=== PATIENT | male | born 1995 | race Caucasian/White ===

== ENCOUNTER 2016-08-02 23:58 | Emergency (ER) | payer MEDICAID ==
[2016-08-03 00:07] VITALS: BP 110/62
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
== END 2016-08-03 01:42 | disposition home or self-care (01) ==
LOC: ER 23:58
DX: S80.212A Abrasion, left knee, initial encounter (principal); S80.211A Abrasion, right knee, initial encounter; W01.0XXA Fall on same level from slipping, tripping and stumbling without subsequent striking against object, initial encounter; Y92.008 Other place in unspecified non-institutional (private) residence as the place of occurrence of the external cause

== ENCOUNTER 2016-09-27 12:51 | Emergency (ER) | payer MEDICAID ==
[2016-09-27] MEDS ORDERED: diphenhydrAMINE HCL 50 MG/ML VIAL IV ONE (13:29)
[2016-09-27] MEDS ORDERED: NORMAL SALINE 1,000 ML in NORMAL SALINE 1,000 ML IV ONE (13:29)
[2016-09-27] MEDS ORDERED: METOCLOPRAMIDE HCL 5 MG/ML VIAL IV ONE (13:29)
--- OUTSIDE RECORDS SUMMARY | 2016-09-27 13:30 | XMS REPORT | Continuity of Care Document ---
:1995 Author Organization [facility] [place] [address] Care Team Providers Name Role Phone Provider, None Per Patient Primary Care Provider Unavailable Source Comments This disclosure is being made pursuant to the [email or web address] program and maynot contain all information available regarding this patient.[facility] Active Allergies and Adverse Reactions Allergen Noted Date Severity Reactions Comments Latex 09/21/2016 Low Rash Pcn 09/21/2016 High Hives Current Medications Be aware that medications may not be up to date as of this document. Alwaysverify current medications with the patient. Prescription Sig. Disp. Refills Start Date End Date Status meloxicam (MOBIC) Take 1 tablet 30 tablet 2 09/21/2016 Active 15 MG tablet by mouth daily. traMADol (ULTRAM) Take 1 tablet 60 tablet 0 09/24/2016 Active 50 MG tablet (50 mg total) by mouth every 6 (six) hours as needed for Pain. traMADol (ULTRAM) Take 1 tablet 20 tablet 0 09/21/2016 09/24/2016 Discontinued 50 MG tablet (50 mg total) by mouth every 6 (six) hours as needed for Pain. Active Problems No known active problems Most Recent Encounters Date Type Specialty Providers Description 09/24/2016 Refill Family Medicine Delio Morton LPN Acute pain of right knee (Primary Dx) 09/21/2016 Office Visit Family Medicine Edy Fragoso DO Acute pain of right knee (Primary Dx) Social History Tobacco Use Types Packs/Day Years Used Date Former Smoker Quit: 06/23/2015 Alcohol Use Drinks/Week oz/Week Comments No Last Filed Vital Signs Vital Sign Reading Time Taken Blood Pressure 110/72 09/21/2016 9:45 AM CDT Pulse 59 09/21/2016 9:45 AM CDT Temperature 36.1 C (96.9 F) 09/21/2016 9:45 AM CDT Respiratory Rate 16 09/21/2016 9:45 AM CDT Height 1.803 m (5' 11") 09/21/2016 9:45 AM CDT Weight 107.049 kg (236 lb) 09/21/2016 9:45 AM CDT Body Mass Index 32.93 09/21/2016 9:45 AM CDT Oxygen Saturation 98% 09/21/2016 9:45 AM CDT Plan of Care Date Type Specialty Providers Description 10/22/2016 Appointment Family Medicine Edy Fragoso V, [address] [place] [phone] (Fax) Health Maintenance Due Date Last Done Comments HPV Vaccine (9-26YO) (1 of 3 - Male 3 Dose Series) 01/04/2007 Meningococcal Vaccine (1 of 1) 2012 Tetanus/Pertussis (1 - Tdap) 01/04/2015 Influenza Immunization (#1) 2016 Results from Last 3 Months Not on file
[2016-09-27 13:41] LABS: Hematocrit 48.3 % (42.0-52.0); Hemoglobin 16.2 gm/dL (13.5-18.0); Mean Cell Volume 87.5 fl (78-100); Mean Corpuscular Hemoglobin 29.3 pg (27-31); Mean Corpuscular Hgb Conc 33.5 g/dl (32-36); Mean Platelet Volume 8.7 fl (6.0-9.5); Neutrophil # 17.4 K/mm3 (1.3-6.0); Neutrophil % 90.5 % (42-75.0); Platelet Count 316 K/mm3 (150-450); Red Blood Count 5.52 M/mm3 (4.7-6.0); White Blood Count 19.2 K/mm3 (4.0-10.5)
[2016-09-27 13:53] LABS: Albumin * 4.6 gm/dl (3.4-5.0); Anion Gap 14.3 mmol/L (6.8-13.8); BUN/Creatinine Ratio 21.3 (9.0-21.6); Bilirubin, Total 0.9 mg/dL (0.0-1.1); Ca. Corrected For Albumin 8.7 mg/dL (8.4-10.2); Calcium * 9.5 mg/dL (7.9-10.9); Carbon Dioxide 25.9 mmol/L (24-32.6); Magnesium 1.9 mg/dL (1.2-2.8); Potassium 4.2 mmol/L (3.4-4.6)
[2016-09-27] MEDS ORDERED: METOCLOPRAMIDE HCL 5 MG/ML VIAL ONE (13:56)
[2016-09-27] MEDS ORDERED: diphenhydrAMINE HCL 50 MG/ML VIAL ONE (13:56)
[2016-09-27 14:08] VITALS: BP 142/79
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
== END 2016-09-27 15:07 | disposition home or self-care (01) ==
LOC: ER 12:51
DX: G43.909 Migraine, unspecified, not intractable, without status migrainosus (principal)

== ENCOUNTER 2016-10-03 21:03 | Observation (INO) | payer MEDICAID ==
[2016-10-03] MEDS ORDERED: KETOROLAC TROMETHAMINE 30 MG/ML VIAL ONE ×2 (21:31→21:54)
[2016-10-03] MEDS ORDERED: KETOROLAC TROMETHAMINE 30 MG/ML VIAL IV ONE (21:33)
--- OUTSIDE RECORDS SUMMARY | 2016-10-03 21:38 | XMS REPORT | Continuity of Care Document ---
:1995 Author Organization [facility] [place] [address] Care Team Providers Name Role Phone Provider, None Per Patient Primary Care Provider Unavailable Source Comments This disclosure is being made pursuant to the [employer] program and contain all information available regarding this patient.[facility] Active Allergies and Adverse Reactions Allergen Noted [...] 10/22/2016 Appointment Family Medicine Edy Fragoso V, [address] [place] [phone] (Fax) Health Maintenance Due Date Last Done Comments HPV Vaccine (9-26YO) (1 of 3 - Male 3 Dose Series) 01/04/2007 Meningococcal Vaccine (1 of 1) 2012 Tetanus/Pertussis (1 - Tdap) 01/04/2015 Influenza Immunization (#1) 2016 Results from Last 3 Months Not on file
[2016-10-03 21:40] LABS: Albumin * 4.4 gm/dl (3.4-5.0); Anion Gap 15.1 mmol/L (6.8-13.8); BUN/Creatinine Ratio 12.4 (9.0-21.6); Bilirubin, Total 0.6 mg/dL (0.0-1.1); CRP 0.4 mg/dL (0.0-0.9); Ca. Corrected For Albumin 8.6 mg/dL (8.4-10.2); Calcium * 9.2 mg/dL (7.9-10.9); Carbon Dioxide 25.4 mmol/L (24-32.6); Potassium 3.5 mmol/L (3.4-4.6); Total Protein 8.7 gm/dL (6.2-8.2)
[2016-10-03 22:02] LABS: Hematocrit 48.2 % (42.0-52.0); Hemoglobin 16.5 gm/dL (13.5-18.0); Mean Cell Volume 85.2 fl (78-100); Mean Corpuscular Hemoglobin 29.2 pg (27-31); Mean Corpuscular Hgb Conc 34.2 g/dl (32-36); Mean Platelet Volume 8.8 fl (6.0-9.5); Neutrophil # 11.1 K/mm3 (1.3-6.0); Neutrophil % 80.2 % (42-75.0); Platelet Count 392 K/mm3 (150-450); Red Blood Count 5.66 M/mm3 (4.7-6.0); Red Cell Distribution Width 12.7 % (11.5-14.0); White Blood Count 13.9 K/mm3 (4.0-10.5)
[2016-10-03] MEDS ORDERED: HYDROmorphone HCL 1 MG/ML DISP.SYRIN IV ONE ×2 (22:11→22:36)
[2016-10-03] MEDS ORDERED: ONDANSETRON HCL/PF 2 MG/ML VIAL IV ONE (22:11)
[2016-10-03] MEDS ORDERED: HYDROmorphone HCL 1 MG/ML DISP.SYRIN ONE ×2 (22:13→22:33)
[2016-10-03] MEDS ORDERED: ONDANSETRON HCL/PF 2 MG/ML VIAL ONE (22:14)
[2016-10-03] MEDS ORDERED: DIATRIZOATE MEGLU/DIATRIZO SOD 30 ML BTL ONE (22:47)
[2016-10-03] MEDS ORDERED: DIATRIZOATE MEGLU/DIATRIZO SOD 30 ML BTL PO ONE (23:59)
[2016-10-04] MEDS ORDERED: NORMAL SALINE 1,000 ML IV ONE (00:47)
--- NOTE | 2016-10-04 00:48 | ERNOTE ---
<Bone,Tyron - Last Filed: 10/04/16 00:45> Medical Problem HPI - General Chief Complaint: General Assessment Time Seen by Provider: 10/03/16 21:09 - Immun/Allergies/Home Medications Immunizations: IMMUNIZATION HX Immunizations Up to Date Yes History of Influenza Vaccine No Hx Pneumococcal Vaccination No Allergies/Adverse Reactions: Allergies latex Allergy (Verified 09/27/16 13:15) Penicillins Allergy (Verified 09/27/16 13:15) IV dye Allergy (Uncoded 09/27/16 13:15) Home Medications: HOME MEDICATIONS Butalb/Acetaminophen/Caffeine [Fioricet] 1 tab PO TID PRN #20 tablet 09/27/16 [ Last Taken Unknown] Citalopram Hydrobromide [Citalopram HBr] 20 mg PO DAILY 09/27/16 [Last Taken Unknown] Ondansetron [Zofran Odt] 4 mg PO Q6H PRN #20 tab 09/27/16 [Last Taken Unknown] - History of Present History Narrative: Pt comes in for right sided headache and right lower quadrant abd pain and nausea and vomiting for 12 hours. He does have migraine headaches but his abd pain is worse. His medications at home have not helped. he is unable to keep any fluids down today due to vomiting Review of Systems - Review of Systems Constitutional: Present: fatigue EYE: Present: no symptoms reported ENT: Present: no symptoms reported Respiratory: Present: no symptoms reported Cardiology: Present: no symptoms reported Gastrointestinal/Abdominal: Present: See HPI Neurological: Present: See HPI, headache - Patient's Past Medical History Patient History - Medical: No pertinent hx, Migraines Patient History - Cardiac/Respiratory: Asthma Patient History - Cancer: No Hx of Cancer Patient History - Surgical Procedures: Other, Hernia Repair Patient History - Other: None - Family History Mother Family History - Medical: Diabetes Type 2, Migraines - Social History Living Situations: home Abuse History: No History of abuse Psych History: Hx of Anxiety Smoking Status: Never smoker Alcohol Use: none Drug Use: none - Immunizations Immunizations Up to Date: Yes Hx Pneumococcal Vaccination: No History of Influenza Vaccine: No Physical Exam - Physical Exam General Appearance: Present: wd/wn, alert, no apparent distress Eye Exam: Normal inspection: bilateral, PERRL: bilateral, EOMI: bilateral Ears, Nose, Throat: Present: normal ENT inspection, normal pharynx, other - There is tenderness of right maxillary area and frontal area on exam Respiratory: Present: no respiratory distress, normal breath sounds, no accessory muscle use, chest nontender, lungs clear Cardiovascular/Chest: Present: regular rate, rhythm, no murmur, normal peripheral pulses Gastrointestinal/Abdominal: Present: normal bowel sounds, soft, other - pt does have right lower quadrant abd pain when I examine him Extremity Exam: Present: normal inspection, normal range of motion Neurological Exam: Present: alert, oriented, normal mood/affect ED Progress - Results and Orders Patient's Lab Results:: I have reviewed the patient's lab results. - Vital Signs Patient's Vital Signs:: I have reviewed the patient's vital signs. Vital Signs: Vital Signs 10/03/16 10/03/16 10/03/16 21:09 22:20 23:34 Temperature 36.7 C Pulse Rate 96 93 90 Respiratory 17 14 18 Rate Blood Pressure 149/94 131/76 123/72 O2 Sat by Pulse 98 95 96 Oximetry - Progress/Reassessment Chief Complaint: General Assessment Departure - Departure Clinical Impression: Status migrainosus Disposition: [facility] Condition: Stable <Beverly Payan - Last Filed: 10/04/16 01:04> Medical Problem HPI - Immun/Allergies/Home Medications Immunizations: IMMUNIZATION HX Immunizations Up to Date Yes History of Influenza Vaccine No Hx Pneumococcal Vaccination No - Family History Mother Family History - Medical: Diabetes Type 2, Migraines ED Progress - Vital Signs Vital Signs: Vital Signs 10/03/16 10/03/16 10/03/16 21:09 22:20 23:34 Temperature 36.7 C Pulse Rate 96 93 90 Respiratory 17 14 18 Rate Blood Pressure 149/94 131/76 123/72 O2 Sat by Pulse 98 95 96 Oximetry 10/04/16 00:53 Temperature 37.0 C Pulse Rate 75 Respiratory 16 Rate Blood Pressure 128/69 O2 Sat by Pulse 97 Oximetry Plan - Plan Plan: pt's work up for appy is negative but pt states his headache is not better. Will admit for pain control.
--- OUTSIDE RECORDS SUMMARY | 2016-10-04 01:51 | XMS REPORT | Continuity of Care Document ---
:1995 Author Organization [facility] [place] [address] Care Team Providers Name Role Phone Provider, None Per Patient Primary Care Provider Unavailable Source Comments This disclosure is being made pursuant to the [employer] program and contain all information available regarding this patient.[facility] [facility] Active Allergies and Adverse Reactions Allergen Noted [...] 10/22/2016 Appointment Family Medicine Edy Fragoso V, [address] [place] [phone] (Fax) Health Maintenance Due Date Last Done Comments HPV Vaccine (9-26YO) (1 of 3 - Male 3 Dose Series) 01/04/2007 Meningococcal Vaccine (1 of 1) 2012 Tetanus/Pertussis (1 - Tdap) 01/04/2015 Influenza Immunization (#1) 2016 Results from Last 3 Months Not on file
[2016-10-04] MEDS ORDERED: NORMAL SALINE 1,000 ML IV PRN (02:23)
[2016-10-04] MEDS ORDERED: KETOROLAC TROMETHAMINE 30 MG/ML VIAL IV PRN (02:23)
[2016-10-04] MEDS ORDERED: ONDANSETRON HCL/PF 2 MG/ML VIAL IV PRN (02:25)
--- NOTE | 2016-10-04 02:55 | HP ---
Chief Complaint - Chief Complaint Date of Service: 10/04/16 Time of Service: 02:06 Chief Complaint: "Abdominal Pain, n/v, diarrhea.". Source of HPI- Pt; unreliable, Pt's father Clark, ER provider report. History of Present Illness: Iggy Henriquez is a 21-yr-old WM pt with no pertinent medical history besides Migraines. Pt does not appear to be a precise historian and his father Clark, provided most of the information. Pt can answer some questions with eyes closed or awakens and drifts back into sleep. Clark states that pt has not been feeling well for the last one week. While family went out for dinner last night , he chose to stay home. Pt later called parents that he was having severe abdominal pain on "his sides and he was screaming." Since they were 20 minutes away from home, the called the EMS for him and he was brought to the [facility] ED. Father states pt's appetite has been very poor for the last 7 days. He has been drinking Gatorade and Mirtha Mist but sometimes, he cannot keep the liquids down. Pt reports that he has had up to 6 lose/liquid stools a day for the 7 days and the diarrhea is accompanied with abdominal pain. He denies fever & chills. Also no blood in stools. He has had no recent antibiotic use. Pt states that he was recently started on a new medication for migraines and thought that it maybe causing diarrhea. He called Dr. Caldwell( Neurology), but he was told that the medication could not cause diarrhea. During evaluation at the ED, the CT scan of the abdomen obtained did not have any obvious acute findings and was non-specific. The BMP was normal. However, the WBC was elevated at 13.9 with a LT shift. He will be admitted under observation status due to Abdominal Pain and for Migraine pain control. - Patient's Past Medical History Patient History - Medical: No pertinent hx, Migraines Patient History - Cardiac/Respiratory: Asthma Patient History - Cancer: No Hx of Cancer Patient History - Surgical Procedures: Other, Hernia Repair Patient History - Other: None - Family History Mother Family History - Medical: Diabetes Type 2, Migraines - Social History Living Situations: home Abuse History: No History of abuse Psych History: Hx of Anxiety Smoking Status: Never smoker Alcohol Use: none Drug Use: none - Immunizations Immunizations Up to Date: Yes Hx Pneumococcal Vaccination: No History of Influenza Vaccine: No Review Of Systems (GEN) - Review of Systems Generalized/Overall Review: Present: Weight loss. Absent: Weakness, Chills, Fever EENTM: Present: Blurred Vision - RT eye. Absent: Eye Pain, Double Vision, Ear Pain Respiratory: Absent: Cough, Shortness of Breath Cardiac: Absent: Chest Pain, Edema, Palpitations Abdominal: Present: Nausea, Vomiting, Abdominal Pain, Diarrhea. Absent: Constipation Genitourinary: Absent: Burning, Frequency, Hematuria Musculoskeletal: Absent: Joint Pain, Back Pain, Neck Pain Neurological: Present: Headache. Absent: Anxiety, Depressed, Numbness, Weakness Skin: Absent: Dryness, Lesions, Bruising Endocrine: Present: No Symptoms Reported Misc: All systems neg except as marked Allergies/Adverse Reactions: Allergies Allergy/AdvReac Type Severity Reaction Status Date / Time latex Allergy Verified 09/27/16 13:15 Penicillins Allergy Verified 09/27/16 13:15 IV dye Allergy Uncoded 09/27/16 13:15 Home Medications: HOME MEDICATIONS Citalopram Hydrobromide [Citalopram HBr] 20 mg PO DAILY 09/27/16 [Last Taken 07/17] Amitriptyline HCl [Elavil] 25 mg PO HS 10/04/16 [Last Taken 09/29/16] Promethazine HCl [Phenergan] 25 mg PO ONCE PRN 10/04/16 [Last Taken 09/29/16] SUMAtriptan SUCCINATE [Imitrex] 50 mg PO ONCE PRN 10/04/16 [Last Taken 09/29/16] Exam - Exam Vital Signs: Vital Signs - Last Taken Temp 37.0 C 10/04/16 00:53 Pulse 75 10/04/16 00:53 Resp 16 10/04/16 00:53 BP 128/69 10/04/16 00:53 Pulse Ox 97 10/04/16 00:53 Constitutional: Present: Alert, Oriented x3, No distress, Other - Drowsy ENT Exam: Present: normal ENT inspection, hearing grossly normal, dry mucous membranes. Absent: nasal congestion, nasal drainage Eye Exam: bilateral eye: normal inspection, PERRL Neck: Present: full range of motion, supple, normal inspection Back Exam: Present: normal inspection, no CVA tenderness Breasts: Present: Exam deferred Respiratory: Present: lungs clear, no accessory muscle use, No wheezing Cardiovascular/Chest: Present: normal peripheral pulses, regular rate, rhythm, no chest tenderness, no edema, no murmur Abdomen: Present: Normal bowel sounds, soft, tender - RLQ /Rectal: Present: Exam deferred Extremity: Present: normal range of motion, non-tender, normal inspection, no pedal edema Skin Exam: Present: warm/dry, no cyanosis Lymphatic: Present: no adenopathy Neurologic: Present: no motor/sensory deficits, oriented x 3. Absent: abnormal gait, aphasia, dizzy/light-headedness Appearance: Present: appropriate appearance, impaired insight Eye contact: Present: cooperative, normal speech Thoughts: Present: normal thought pattern, no apparent hallucination Diagnostic Studies: Laboratory Results WBC 13.9 K/mm3 (4.0-10.5) H 10/03/16 21:20 RBC 5.66 M/mm3 (4.7-6.0) 10/03/16 21:20 Hgb 16.5 gm/dL (13.5-18.0) 10/03/16 21:20 Hct 48.2 % (42.0-52.0) 10/03/16 21:20 MCV 85.2 fl (78-100) 10/03/16 21:20 MCH 29.2 pg (27-31) 10/03/16 21:20 MCHC 34.2 g/dl (32-36) 10/03/16 21:20 RDW 12.7 % (11.5-14.0) 10/03/16 21:20 Plt Count 392 K/mm3 (150-450) 10/03/16 21:20 MPV 8.8 fl (6.0-9.5) 10/03/16 21:20 Immature Gran % (Auto) 0.20 % (0.001-0.429) 10/03/16 21:20 Immature Gran # (Auto) 0.03 K/mm3 (0.000-0.0310) 10/03/16 21:20 Neutrophils % 80.2 % (42-75.0) H 10/03/16 21:20 Lymphocytes % 9.4 % (20-51) L 10/03/16 21:20 Monocytes % 9.6 % (0.0-9) H 10/03/16 21:20 Eosinophils % 0.5 % (0.0-3.0) 10/03/16 21:20 Basophils % 0.1 % (0.0-1.0) 10/03/16 21:20 Nucleated RBC % 0.0 k/mm3 (0-1) 10/03/16 21:20 Neutrophils # 11.1 K/mm3 (1.3-6.0) H 10/03/16 21:20 Lymphocytes # 1.3 k/mm3 (1.5-3.5) L 10/03/16 21:20 Monocytes # 1.3 k/mm3 (0.0-1.0) H 10/03/16 21:20 Eosinophils # 0.1 k/mm3 (0.0-0.7) 10/03/16 21:20 Absolute Basophils 0.0 k/mm3 (0.0-0.1) 10/03/16 21:20 ESR 13 mm/hr (0-10) H 10/03/16 21:20 Sodium 140 mmol/L (132-142) 10/03/16 21:20 Plasma Sodium 140 mmol/L (130-142) 10/03/16 21:20 Potassium 3.5 mmol/L (3.4-4.6) 10/03/16 21:20 Chloride 103 mmol/L (97-106) 10/03/16 21:20 Carbon Dioxide 25.4 mmol/L (24-32.6) 10/03/16 21:20 Anion Gap 15.1 mmol/L (6.8-13.8) H 10/03/16 21:20 BUN 11 mg/dL (6-23) 10/03/16 21:20 Creatinine 0.89 mg/dL (0.4-1.4) 10/03/16 21:20 Est GFR (Non-Af Amer) 116 mL/min (60-130) 10/03/16 21:20 BUN/Creatinine Ratio 12.4 (9.0-21.6) 10/03/16 21:20 Random Glucose 113 mg/dL (70-110) H 10/03/16 21:20 Calcium 9.2 mg/dL (7.9-10.9) 10/03/16 21:20 Calcium Adj for Albumin 8.6 mg/dL (8.4-10.2) 10/03/16 21:20 Total Bilirubin 0.6 mg/dL (0.0-1.1) 10/03/16 21:20 AST 26 U/L (0-48) 10/03/16 21:20 ALT 26 U/L (19-67) 10/03/16 21:20 Alkaline Phosphatase 89 U/L (50-170) 10/03/16 21:20 C-Reactive Prot, Quant 0.4 mg/dL (0.0-0.9) 10/03/16 21:20 Total Protein 8.7 gm/dL (6.2-8.2) H 10/03/16 21:20 Albumin 4.4 gm/dl (3.4-5.0) 10/03/16 21:20 Assessment/Plan - Assessment/Plan (1) Abdominal pain Assessment: It is difficult to rely on the pt's report of symptoms in part due to his drowsiness as prior to the exam, he had received IV narcotics for Migraine and Abdominal pain. On physical exam, the Abdomen is soft, non-distended, has no guarding and no abdominal rigidity. He has RLQ tenderness on palpation but the Abd CT was negative for Appendicitis. He reports diarrhea, N/V that has gone on for 7 days, however there is no sign of fluid loss noted with his V.S or no Metabolic/Electrolytes changes. WBC is elevated at 13,900 but it's down from 19,200 on 09/27. Overall, he does not appear acutely ill. Since his WBC went down without any treatment, watchful waiting would be appropriate and pt will be encouraged to push fluids and educated on signs of dehydration. Will collect stool samples and check for fecal leukocyte and blood to see if diarrhea is inflammatory first then additional testing if the are both positive. Since pt also reported prominent vomiting, could suspect that is related to viral Enteritis-in which treatment is symptomatic with fluid and electrolyte replacement . Will admit for observation and provide supportive cares with IVF hydration, pain medication, and trend CBC in am. Problem: Acute (2) Diarrhea Assessment: Plan as above- Check fecal leukocyte and occult blood. Problem: Acute (3) Migraines Assessment: Head CT at the ED was non- Acute. Has had Migraines since 12 yrs. Is followed by Dr. Caldwell ( Neurology). Will provide IV toradol during hospitalization and will need to resume his home medication. Problem: Chronic
[2016-10-04 05:56] LABS: Hematocrit 43.7 % (42.0-52.0); Hemoglobin 14.6 gm/dL (13.5-18.0); Mean Cell Volume 86.7 fl (78-100); Mean Corpuscular Hgb Conc 33.4 g/dl (32-36); Mean Platelet Volume 8.5 fl (6.0-9.5); Neutrophil # 7.6 K/mm3 (1.3-6.0); Neutrophil % 72.1 % (42-75.0); Platelet Count 325 K/mm3 (150-450); Red Blood Count 5.04 M/mm3 (4.7-6.0); Red Cell Distribution Width 12.9 % (11.5-14.0); White Blood Count 10.5 K/mm3 (4.0-10.5)
[2016-10-04 06:08] LABS: Anion Gap 11.8 mmol/L (6.8-13.8); BUN/Creatinine Ratio 15.4 (9.0-21.6); Blood Urea Nitrogen 14 mg/dL (6-23); Calcium * 8.6 mg/dL (7.9-10.9); Carbon Dioxide 28.8 mmol/L (24-32.6); Chloride 106 mmol/L (97-106); Glucose * 97 mg/dL (70-110); Potassium 3.6 mmol/L (3.4-4.6); Sodium 143 mmol/L (132-142)
[2016-10-04 06:49] LABS: Lymphocyte 5 % (20-51)
[2016-10-04 06:50] LABS: Bacteria Many; White Blood Count Many
[2016-10-04 06:51] LABS: Yeast None Seen
[2016-10-04 06:54] LABS: Eosinophil 45 % (0-3); Neutrophil 50 % (42-75)
--- NOTE | 2016-10-04 10:45 | DS ---
(1) Abdominal pain Problem: Acute (2) Diarrhea Problem: Acute (3) Status migrainosus Problem: Acute Description of Stay: Description of stay: Iggy is a 21 year old male with a meterman history of migraines that presented to the ER with severe headache and n/v/d x7 days (improving). CT of the head and abdomen were non acute. patient was started on iv fluids. c diff negative. pt was released later that afternoon once stabilized and his headache improved. instructed to follow up with pcp in 1 week. Procedures Performed: none Discharge Disposition: Home self care Disposition: Home self-care Condition: Undetermined Discharge Activity: Activity as tolerated Discharge Diet: General/regular food Problem Oriented Discharge Instructions to Patient/Family: Viral Gastroenteritis, Adult, [id number], Rehydration, Adult Additional Patient Instructions (free text): push fluids - such as water. follow up with primary care physician in 1 week. Complete Home Medications List: Complete Home Medication List: Citalopram Hydrobromide [Citalopram HBr] 20 mg PO DAILY 09/27/16 Amitriptyline HCl [Elavil] 25 mg PO HS 10/04/16 Promethazine HCl [Phenergan (Promethazine)] 25 mg PO ONCE PRN 10/04/16 SUMAtriptan SUCCINATE [Imitrex] 50 mg PO ONCE PRN 10/04/16
[2016-10-04 11:32] VITALS: BP 90/41
== END 2016-10-04 11:30 | disposition home or self-care (01) ==
LOC: ER 21:03 → MS 10-04 01:45
PROVIDERS: ADMIT Nurse Practitioner; ATTEND Internal Medicine
DX: G43.901 Migraine, unspecified, not intractable, with status migrainosus (principal); R10.9 Unspecified abdominal pain; R19.7 Diarrhea, unspecified
CPT/HCPCS: 36415; 70450; 74176; 80048; 80053; 82272; 85025; 85652; 86140; 87045; 87046; 87493; 89055; 96374; 96375; 96376; 99284; G0378

== ENCOUNTER 2017-01-21 23:53 | Emergency (ER) | payer MEDICAID ==
--- NOTE | 2017-01-22 00:39 | ERNOTE ---
Lower Extremity HPI - General Time Seen by Provider: 01/22/17 00:26 Source: patient Exam Limitations: no limitations - Immun/Allergies/Home Medications Immunizations: IMMUNIZATION HX Immunizations Up to Date Yes History of Influenza Vaccine No Hx Pneumococcal Vaccination No Allergies/Adverse Reactions: Allergies Allergy/AdvReac Type Severity Reaction Status Date / Time latex Allergy Verified 09/27/16 13:15 Penicillins Allergy Verified 09/27/16 13:15 IV dye Allergy Uncoded 09/27/16 13:15 Home Medications: HOME MEDICATIONS Citalopram Hydrobromide [Celexa] 20 mg PO DAILY 01/22/17 [Last Taken Unknown] Gabapentin 300 mg PO BID 01/22/17 [Last Taken Unknown] HYDROcodone/ACETAMINOPHEN [Hydrocodon-Acetaminophen 5-325] 1 each PO BID [Last Taken Unknown] Hydroxyzine HCl 25 mg PO BID 01/22/17 [Last Taken Unknown] - History of Present Illness Narrative: pt has had left knee pain for three months. he was supposed to get "some shots" in his left knee but has not scheduled that yet. 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 He went to work [employer] and he states that he reinjured his left knee tonight - Patient's Past Medical History Patient History - Medical: Anxiety, Migraines Patient History - Cardiac/Respiratory: Asthma Patient History - Cancer: No Hx of Cancer Patient History - Surgical Procedures: Other, Hernia Repair Patient History - Other: None - Family History Mother Family History - Medical: Diabetes Type 2, Migraines - Social History Living Situations: parents Abuse History: No History of abuse Psych History: Hx of Anxiety Smoking Status: Current every day smoker Have you smoked in the past 12 months: Yes Do you dip or chew tobacco: No Alcohol Use: rarely Drug Use: none - Immunizations Immunizations Up to Date: Yes Hx Pneumococcal Vaccination: No History of Influenza Vaccine: No Physical Exam - Physical Exam General Appearance: Present: wd/wn, alert, no apparent distress Head Exam: Present: normal inspection, no evidence of injury Ears, Nose, Throat: Present: normal ENT inspection Neck: Present: normal inspection, nontender Cardiovascular/Chest: Present: regular rate, rhythm, no murmur, normal peripheral pulses Gastrointestinal/Abdominal: Present: normal bowel sounds, nontender, nondistended, soft Extremity Exam: Present: other - slightly swollen left knee noted, no deformity or ecchymosis noted Neurological Exam: Present: alert, oriented, normal mood/affect ED Progress - Vital Signs Patient's Vital Signs:: I have reviewed the patient's vital signs. Vital Signs: Vital Signs 01/22/17 00:02 Temperature 36.8 C Pulse Rate 87 Respiratory 16 Rate Blood Pressure 155/76 O2 Sat by Pulse 98 Oximetry - Progress/Reassessment Chief Complaint: Lower Extremity Pain/ Injury Plan - Plan Plan: pt's Xray is normal. We will emmy wrap his knee and he is well able to ambulate without a limp. He will be discharged home to follow up with his PCP Departure Clinical Impression: Knee pain, left Qualifiers: Chronicity: acute Qualified Code(s): M25.562 - Pain in left knee - Departure Disposition: Home self-care Condition: Good Instructions: Knee Pain Additional Instructions: PLEASE FOLLOW UP WITH YOUR DOCTOR FOR YOUR KNEE
[2017-01-22 01:22] VITALS: BP 143/69
== END 2017-01-22 00:55 | disposition home or self-care (01) ==
LOC: ER 23:53
DX: M25.562 Pain in left knee (principal); F41.9 Anxiety disorder, unspecified; F17.200 Nicotine dependence, unspecified, uncomplicated